=== PATIENT | male | born 1980 | race Caucasian/White ===

== ENCOUNTER 2017-11-27 09:50 | Outpatient (CLI) | payer BC ==
[~2017-11-27 09:50] MED LIST: Gadobenate Dimeglumine 529 MG/1 ML (20ML VIAL) ONE
--- NOTE | 2017-11-28 10:22 | MRI ---
MRI BRAIN WITH AND WITHOUT CONTRAST: DATE: 11-27-17 HISTORY: 36-year-old male with G35 multiple sclerosis. COMPARISON: 10-27-08 TECHNIQUE: Multiple sequences obtained in axial, sagittal, and coronal planes; pre and post IV injection of gado linium-based contrast agent: 20 ml MultiHance FINDINGS: Previously, there was a single small 0.8 cm T2-hyperintense lesion in the left cerebral deep white ma tter, with mildly restricted diffusion. That was thought to be a small subacute lacunar infarction at that time. That lesion has currently involuted and is smaller and thinner. In light of the current f indings, that may have been an early demyelinating plaque rather than a lacunar infarction, because n ow there are multiple focal T2-hyperintense white matter lesions of smaller, similar, and larger size s, in the franklin radiata and centrum semiovale bilaterally. Many of them are T1-hypointense (black ho les). Most of them have Garcia's finger configurations. Some involve the lateral aspects of the corpu s callosum bilaterally, including their under-surfaces. There is a new, small 0.8 x 0.3 cm, somewhat faint T2 hyperintense lesion in the left upper monica, con sistent with a demyelinating plaque. There is another finding of a thin rim of hyperintense signal around the periphery of the entire midb rain, monica, and medulla. There is mildly hyperintense FLAIR signal intensity in the bilateral brachium conjunctivum (superior cerebellar peduncles). There are more focal lesions, including demyelinating plaque at the anterior a spect of the right cerebral peduncle of the midbrain, right superior colliculus, and right posterolat eral midbrain. There is another focal lesion, 1.5 x 0.5 cm at the right thalamus. None of these lesions demonstrate enhancement (are not actively demyelinating). There is no restricte d diffusion. No recent or remote intraaxial hemorrhage. Ventricles are normal in size and configurati on. No mass effect, midline shift, or extraaxial fluid collection. IMPRESSION: 1. Evidence for multiple sclerosis: Multiple lesions in the bilateral cerebral white matter that are characteristic of multiple sclerosis demyelinating plaques. All but one are new since the previous MR I of 10-27-08. 2. Additional focal lesions in the brain stem, also consistent with multiple sclerosis plaques. 3. Highly unusual finding of peripheral rim of hyperintense FLAIR signal around the brainstem, not ty pical for multiple sclerosis. Exact etiology uncertain. Follow up recommended. LEANNE Hardwick POS: [facility]
== END 2017-11-27 09:51 | disposition home or self-care (01) ==
LOC: SCSMRI 09:50
PROVIDERS: ATTEND Psychiatry & Neurology Neurology
DX: G35 Multiple sclerosis (principal); G93.9 Disorder of brain, unspecified; R90.89 Other abnormal findings on diagnostic imaging of central nervous system
CPT/HCPCS: 70553; A9579

== ENCOUNTER 2018-05-22 14:17 | Outpatient (CLI) | payer BC ==
[2018-05-22] MEDS ORDERED: Gadobenate Dimeglumine 529 MG/1 ML (20ML VIAL) ONE (16:32)
--- NOTE | 2018-05-22 17:00 | MRI ---
MRI BRAIN WITH AND WITHOUT CONTRAST: INDICATIONS: Multiple sclerosis. Followup. COMPARISON: Prior MRI brain, 11/27/2017. TECHNIQUE: Multiplanar, multisequence images of the brain obtained. FINDINGS: The ventricles have normal size and position. There are numerous white matter hyperintensities seen in both cerebral hemispheres, consistent with t he diagnosis of MS. A larger oblong-shaped lesion in the right centrum semiovale is stable from prio r exam. Numerous smaller lesions, seen in both periventricular regions, appear stable. There is a l esion in the monica, to the left of midline, which is stable. The previously described intensity in the right thalamus is stable. Intensities in the cerebellar pe duncles appear stable. The previously described hypointensity in the periphery, around the brainstem , is stable. On post contrast images, there is no evidence of enhancement. IMPRESSION: Numerous FLAIR and T2 hyperintensities are again seen in the white matter of both cerebral hemisphere s. There are brainstem and posterior fossa lesions again noted. Findings are consistent with a diag nosis of multiple sclerosis and appear stable when compared to 11/27/2017. POS: [facility]
== END 2018-05-22 14:18 | disposition home or self-care (01) ==
LOC: BICMRI 14:17
PROVIDERS: ATTEND Psychiatry & Neurology Neurology
DX: G35 Multiple sclerosis (principal); G93.9 Disorder of brain, unspecified
CPT/HCPCS: 70553

== ENCOUNTER 2018-11-05 10:27 | Outpatient (CLI) | payer BC ==
--- NOTE | 2018-11-05 12:17 | MRI ---
BRAIN MRI WITH AND WITHOUT CONTRAST: COMPARISON: 05/22/2018. INDICATION: Multiple sclerosis. FINDINGS: Bilateral periventricular and colossal signal abnormalities are again demonstrated, grossly stable. No new enhancing intraaxial lesions. There is persistent signal abnormality of the brainstem. No ac creek infarction, mass effect, or midline. IMPRESSION: 1. Grossly stable exam with MR findings to indicate demyelinating lesions related to multiple sclero sis. No enhancing lesions to indicate active demyelination are identified. 2. Stable signal abnormality of the brainstem and alteration of signal with associated volume loss s uggested at the partially imaged proximal cervical spinal cord. Dedicated Spine imaging may be obtai pepper for further assessment, as clinically indicated. POS: [facility]
== END 2018-11-05 10:28 | disposition home or self-care (01) ==
LOC: BICMRI 10:27
PROVIDERS: ATTEND Psychiatry & Neurology Neurology
DX: G35 Multiple sclerosis (principal); G93.9 Disorder of brain, unspecified; R90.89 Other abnormal findings on diagnostic imaging of central nervous system
CPT/HCPCS: 70553

== ENCOUNTER 2020-05-11 07:29 | Outpatient (CLI) | payer BC ==
[2020-05-12 00:16] LABS: SARS-CoV-2 PCR by NAA Not Detected (NotDetected)
== END 2020-05-11 07:30 | disposition home or self-care (01) ==
LOC: LABBT 07:29
PROVIDERS: ATTEND Urology
DX: Z01.812 Encounter for preprocedural laboratory examination (principal); Z20.822 Contact with and (suspected) exposure to COVID-19
CPT/HCPCS: 87635; U0003; U0005

== ENCOUNTER 2020-05-16 08:07 | Day surgery (SDC) | payer BC ==
[2020-05-15 10:20] VITALS: BMI 30.3
[2020-05-16] MEDS ORDERED: Levofloxacin 500 mg/D5W 100 ml Premix Bag ONE (08:32)
[2020-05-16] MEDS ORDERED: PROPOFOL 200 MG/20 ML VIAL ONE (09:20)
[2020-05-16] MEDS ORDERED: Glycopyrrolate 0.2 MG/ML 5 ML SYRINGE ONE (09:20)
[2020-05-16] MEDS ORDERED: Ondansetron PF 4 MG/2 ML Vial ONE (09:20)
[2020-05-16] MEDS ORDERED: Lidocaine 1% PF 5 ML VIAL ONE (09:20)
[2020-05-16] MEDS ORDERED: Dexamethasone 20 MG/5 ML VIAL ONE (09:20)
[2020-05-16] MEDS ORDERED: Fentanyl 100 MCG/2 ML VIAL ONE (09:26)
[2020-05-16] MEDS ORDERED: Bupivacaine PF 0.5% 30 ML VIAL ONE (09:28)
--- NOTE | 2020-05-16 10:58 | OP ---
DATE OF PROCEDURE: 05/16/2020 PREOPERATIVE DIAGNOSES: Neurogenic bladder, urinary retention. POSTOPERATIVE DIAGNOSES: Neurogenic bladder, urinary retention. PROCEDURES PERFORMED: Cystoscopy with placement of suprapubic tube. ANESTHESIA: General. COMPLICATIONS: None. ESTIMATED BLOOD LOSS: Minimal. SPECIMEN: None. DESCRIPTION OF PROCEDURE: After informed consent, the patient was taken to the operating room, transferred to the table. Anesthesia was established. A time-out was performed, showing the correct patient, site, and procedure. Preoperative antibiotics were administered. He was prepped and draped in the lithotomy position. The rigid cystoscope was advanced through the urethra noting normal course and caliber of the urethra into the bladder. The bladder was systematically examined noting no mucosal abnormalities. A spot two fingerbreadths above the pubic symphysis in the midline was selected and infiltrated with 20 mL of 0.25% Marcaine. A small incision was made at this site and the needle used to inject local was used to ensure proper placement in the anterior aspect of the bladder from that site. The scope was withdrawn and the Lowsley retractor passed into the bladder and used to tent the bladder up into the previously made suprapubic incision. The knife was used to incise over the Lowsley, which was then passed into the operative field and the 20-Croat[place] Koch catheter grasped with the Lowsley and brought down into the bladder. The Lowsley was removed leaving the catheter in place, 10 mL were instilled in the balloon. The scope was reinserted, noting good positioning of the suprapubic tube. The tube was then sutured in place with a nylon suture and the skin incision closed around the catheter with chromic. A dressing was placed. The catheter connected to bag drainage and the patient awoken from anesthesia. He was transferred back to his hospital bed, taken to PACU in stable condition, where he was discharged home upon recovery. Job ID: [id number]
== END 2020-05-16 13:20 | disposition home or self-care (01) ==
LOC: SDC 08:07
PROVIDERS: ATTEND Urology
PROC: 0T9B00Z Drainage of Bladder with Drainage Device, Open Approach (ICD-10-PCS; principal; 2020-05-16)
DX: N31.9 Neuromuscular dysfunction of bladder, unspecified (principal); R33.9 Retention of urine, unspecified; G35 Multiple sclerosis; F17.200 Nicotine dependence, unspecified, uncomplicated; F41.9 Anxiety disorder, unspecified; F32.9 Major depressive disorder, single episode, unspecified; Z79.899 Other long term (current) drug therapy
CPT/HCPCS: J1100; J1956; J2405; J2704; J3010; S0020

== ENCOUNTER 2023-02-24 12:15 | Outpatient (CLI) | payer MEDICARE | END 2023-02-24 12:16 | disposition home or self-care (01) | LOC: BICULT 12:15 | PROVIDERS: ATTEND Urology | DX: Z43.5 Encounter for attention to cystostomy (principal); N31.9 Neuromuscular dysfunction of bladder, unspecified; G35 Multiple sclerosis; N39.41 Urge incontinence | CPT/HCPCS: 76770 ==

== ENCOUNTER 2023-06-26 09:28 | Day surgery (SDC) | payer MEDICARE ==
[2023-06-25 15:17] VITALS: BMI 29.0
[2023-06-26] MEDS ORDERED: CEFAZOLIN 1 GM VIAL ONE (11:46)
[2023-06-26] MEDS ORDERED: Sodium Chloride 0.9% 100 ML ONE (11:46)
[2023-06-26] MEDS ORDERED: PROPOFOL 200 MG/20 ML VIAL ONE (12:00)
== END 2023-06-26 13:05 | disposition home or self-care (01) ==
LOC: SDC 09:28
PROVIDERS: ATTEND Internal Medicine Gastroenterology
PROC: 0DJ08ZZ Inspection of Upper Intestinal Tract, Via Natural or Artificial Opening Endoscopic (ICD-10-PCS; principal; 2023-06-26)
DX: R13.10 Dysphagia, unspecified (principal); G35 Multiple sclerosis; E78.5 Hyperlipidemia, unspecified; E46 Unspecified protein-calorie malnutrition; Z68.29 Body mass index [BMI] 29.0-29.9, adult; Z88.1 Allergy status to other antibiotic agents; Z88.2 Allergy status to sulfonamides; Z53.09 Procedure and treatment not carried out because of other contraindication
CPT/HCPCS: 43235; B4087; J0690; J2704; J3490

== ENCOUNTER 2023-07-03 | Day surgery (SDC) | payer MEDICARE | END 2023-07-03 17:40 | disposition home or self-care (01) | PROC: 0DH64UZ Insertion of Feeding Device into Stomach, Percutaneous Endoscopic Approach (ICD-10-PCS; principal; 2023-07-03) | DX: G35 Multiple sclerosis (principal); R13.10 Dysphagia, unspecified; E78.5 Hyperlipidemia, unspecified; Z88.2 Allergy status to sulfonamides; Z88.1 Allergy status to other antibiotic agents; Z79.899 Other long term (current) drug therapy ==

== ENCOUNTER 2023-07-15 12:22 | Outpatient (CLI) | payer MEDICARE ==
[2023-07-15] MEDS ORDERED: GASTROGRAFIN 30 ML BOT ONE (12:40)
[2023-07-15] MEDS ORDERED: Iopamidol 30 ML ONE (13:39)
[2023-07-15] MEDS ORDERED: Lidocaine 1% PF 5 ML VIAL ONE (13:48)
[2023-07-15] MEDS ORDERED: Sodium Bicarbonate 2.5 MEQ/5 ML SDV ONE (13:48)
== END 2023-07-15 12:23 | disposition home or self-care (01) ==
LOC: RAD 12:22
PROVIDERS: ATTEND Surgery
DX: K94.23 Gastrostomy malfunction (principal)
CPT/HCPCS: 49451; 76000; Q9963; Q9967